=== PATIENT | female | born 1945 | race Caucasian/White ===

== ENCOUNTER 2024-08-24 11:04 | Day surgery (SDC) | payer MEDICARE, OTHER ==
[~2024-08-24] VITALS: Ht 157.5 cm; Wt 61.8 kg
[~2024-08-24 11:04] MED LIST: ESTRACE1 MG PO; IBLOOD GLUCOSE TEST STRIP 1 EA TEST VI PRN; LACTATED RINGER'S 1,000 ML IV SCH; LIDOCAINE HCL 1% 5 ML SDV INJ ONE; LISINOPRIL-HCT1 EACH PO; MIDAZOLAM HCL 5 MG/5 ML VIAL IV PRN; PLAVIX75 MG PO; fentaNYL citrate 100 MCG/2 ML VIAL IV PRN
[2024-08-24 11:43] VITALS: BP 150/62
[2024-08-24] MEDS ORDERED: IBU400 MG PO (11:49)
[2024-08-24] MEDS ORDERED: fentaNYL citrate 100 MCG/2 ML VIAL ONE (12:56)
[2024-08-24] MEDS ORDERED: MIDAZOLAM HCL 5 MG/5 ML VIAL ONE (12:56)
--- NOTE | 2024-08-24 13:49 | NUR ---
08/24/24 1349 Norma Varela 1345-PATIENT ARRIVED TO PACU ON 2L NC RR EVEN. PATIENT REACTIVE TO VERBAL STIMULI OPENS EYES VERY DROWSY DOZES BACK TO SLEEP. LAYING LEFT LATERAL. ABDOMEN SOFT. IVF INFUSING.
[2024-08-24 14:45] VITALS: BP 129/55
--- NOTE | 2024-08-24 15:12 | NUR ---
1445 PT ARRIVED TO DAY SURGERY FROM PACU VIA CARMENR. REPORT TAKEN FROM ERNA LOGAN. PT WAS LAYING ON SIDE, PT SAT UP INTO SEMI FOWLERS POSITION. PT SIPPING ON WATER. VITALS TAKEN. IV ASSESSED. PT AWAKE AND ORIENTED. 1450 DISCHARGE INFORMATION GONE OVER WITH PT, NO QUESTIONS AT THIS TIME. CALLED PT FOR PICKUP. ASSISTED PT INTO GETTING DRESSED. 1503 PT DISCHARGED FROM DAY SURGERY VIA WHEELCHAIR, TO THE FRONT OF THE HOSPITAL TO PT'S HUSBANDS CAR. DISCHARGE INFORMATION IN HAND. DISCHARGE INFORMATION GONE OVER WITH .
--- NOTE | 2024-08-24 17:24 | OR ---
[facility] [address], [place] [address] Signed DATE OF OPERATION: 08/24/2024 SURGEON: Kayla Sheikh MD PREOPERATIVE DIAGNOSIS: Colon screening. POSTOPERATIVE DIAGNOSIS: Small polyps x3. PROCEDURE: Total colonoscopy to cecum. Cold morcellation polypectomy x3. ANESTHESIA: Intravenous sedation; fentanyl 100 mcg and Versed 3 mg. INDICATION: This 79-year-old white woman is a patient of Dr. Laura Gutierrez in [place], [place]. She last underwent colonoscopy more than 13 years ago in [place], [place]. She does have family history of colon cancer in a grandparent. She has no current symptoms of bleeding, diarrhea and only occasional episodes of constipation. She is admitted to undergo screening colonoscopy. She understands the risk of bleeding, infection, and perforation. FINDINGS: The prep was excellent. Complete colonoscopy was undertaken of the cecum. There were three polyps in total, one in the right colon, another in the cecum and another in the rectosigmoid. All were excised with cold morcellation technique. DESCRIPTION OF PROCEDURE: The patient was brought to the endoscopy suite and placed in the lateral decubitus position, given intravenous sedation to the point of slurred speech and nystagmus. Digital rectal examination was normal. An Olympus video colonoscope was passed in the rectum and manipulated throughout the colon ultimately intubating the cecum itself. There was a small polyp of the cecum, which was excised with cold morcellation technique. Further withdrawal noted another small polyp of the right colon similarly excised. Further withdrawal showed no other abnormality into the rectosigmoid, where probable hyperplastic polyp was noted, this was excised as well. Retroflexed view was normal. Scope was removed and the patient was Electronically Signed By: KAYLA SHEIKH MD 08/24/24 1724 PATIENT NAME: MINDA ABRAHAM OPERATIVE REPORT DATE OF : 47 REPORT #: [id number] PHYSICIAN: KAYLA SHEIKH MD PCP: LAURA GUTIERREZ MD REPORT IS CONFIDENTIAL AND NOT TO BE RELEASED WITHOUT AUTHORIZATION [facility] [address], [place] [address] Signed taken to the recovery room in good condition. CONCLUDING DIAGNOSIS: Small polyps x3. PLAN: Recommend repeat colonoscopy in 5 to 7 years, sooner if symptoms should develop. She will return to the ongoing care of Dr. Laura Ramirez at [place], [place]. Kayla Sheikh MD /MODL /[id number] cc: Dr. Ramirez at [place], [place]. Copies: ~ Electronically Signed By: KAYLA SHEIKH MD 08/24/24 1724 PATIENT NAME: MINDA ABRAHAM OPERATIVE REPORT DATE OF : 47 REPORT #: [id number] PHYSICIAN: KAYLA SHEIKH MD PCP: LAURA GUTIERREZ MD REPORT IS CONFIDENTIAL AND NOT TO BE RELEASED WITHOUT AUTHORIZATION
--- NOTE | 2024-08-26 19:39 | PATH ---
[facility] [address] [place], [place] [address] Signed SPECIMEN(S): A HEPATIC FLEXURE COLON POLYP SPECIMEN(S): B CECUM COLON POLYP SPECIMEN(S): C RECTOSIGMOID POLYP SPECIMEN SOURCE: A. HEPATIC FLEXURE COLON POLYP B. CECUM COLON POLYP C. RECTOSIGMOID POLYP CLINICAL HISTORY: History of colon polyps, family history of colon CA (grandparent). Postop: Colon polyps FINAL PATHOLOGIC DIAGNOSIS: A. Hepatic flexure colon polyp: - Tubular adenoma. - Negative for high-grade dysplasia or malignancy. B. Cecal colon polyp: - Focal tubular adenoma. - Negative for high-grade dysplasia or malignancy. C. Rectosigmoid polyp: - Hyperplastic polyp. [facility] MICROSCOPIC EXAMINATION: Histologic sections of all submitted blocks are examined by light microscopy. These findings, together with the gross examination, support the pathologic diagnosis. GROSS DESCRIPTION: A. The specimen, labeled and designated "Beth Muhammad, hepatic flexure colon polyp," is received in formalin and consists of two murillo soft tissue fragments, ranging from 0.3 -0.4 cm. Entirely submitted in (A1). B. The specimen, labeled and designated "Beth Muhammad, cecum colon polyp," is received in formalin and consists of four murillo soft tissue fragments, ranging from 0.2-0.4 cm. Entirely submitted in (B1). C. The specimen, labeled and designated "Sabina K, rectosigmoid polyp," is received in formalin and consists of three murillo soft tissue fragments, ranging from 0.1-0.5 cm. Entirely submitted in (C1). PATIENT NAME: MINDA ABRAHAM PATHOLOGY DATE OF : 47 REPORT #: [id number] PHYSICIAN: MARISELA SHEA PCP: LAURA COSTELLO MD REPORT IS CONFIDENTIAL AND NOT TO BE RELEASED WITHOUT AUTHORIZATION [facility] [address] [place] [id number] Signed AB (under the direct supervision of a pathologist) The Gross Description was prepared using a voice recognition system. The report was reviewed for accuracy; however, sound-alike word errors, addition and/or deletions may occur. If there is any question about this report, please contact Client Services. ADDITIONAL NOTES: Immunohistochemical and/or in situ hybridization studies if performed in this case included appropriate positive controls that reacted as expected. This test was developed and its performance characteristics determined by [facility]. It has not been cleared or approved by the U.S. Food and Drug Administration. The FDA has determined that such clearance or approval is not necessary. This test is used for clinical purposes. It should not be regarded as investigational or for research. [facility] is certified under the Clinical Laboratory Improvement Amendments of 1988 (CLIA) as qualified to perform high complexity clinical laboratory testing. PERFORMING LABORATORY: Technical component was performed by [facility], [address] [place] [id number] (CLIA# [id number]). Professional interpretation was performed by [facility], [address] [place] [id number] (CLIA#: [id number]). Diagnostician: Diego Bey MD Pathologist Electronically Signed 08/26/2024 Copies: ~ PATIENT NAME: MINDA ABRAHAM PATHOLOGY DATE OF : 47 REPORT #: [id number] PHYSICIAN: MARISELA SHEA PCP: LAURA COSTELLO MD REPORT IS CONFIDENTIAL AND NOT TO BE RELEASED WITHOUT AUTHORIZATION
== END 2024-08-24 15:03 | disposition home or self-care (01) ==
LOC: OPS 11:04 → DS 11:04 → OPS 13:00
PROVIDERS: ATTEND Surgery
PROC: 0DBN8ZZ Excision of Sigmoid Colon, Via Natural or Artificial Opening Endoscopic (ICD-10-PCS; 2024-08-24)
PROC: 0DBF8ZZ Excision of Right Large Intestine, Via Natural or Artificial Opening Endoscopic (ICD-10-PCS; 2024-08-24)
PROC: 0DBH8ZZ Excision of Cecum, Via Natural or Artificial Opening Endoscopic (ICD-10-PCS; principal; 2024-08-24 13:00)
DX: Z12.11 Encounter for screening for malignant neoplasm of colon (principal); D12.0 Benign neoplasm of cecum; D12.3 Benign neoplasm of transverse colon; K63.5 Polyp of colon; K59.09 Other constipation; I10 Essential (primary) hypertension; F17.210 Nicotine dependence, cigarettes, uncomplicated; Z86.0100 Personal history of colon polyps, unspecified; Z88.2 Allergy status to sulfonamides; Z79.02 Long term (current) use of antithrombotics/antiplatelets; Z79.899 Other long term (current) drug therapy; Z86.79 Personal history of other diseases of the circulatory system; Z90.711 Acquired absence of uterus with remaining cervical stump; Z80.0 Family history of malignant neoplasm of digestive organs
CPT/HCPCS: 88305; 99153; G0500; J2250; J3010; J7121